=== PATIENT | male | born 1970 | race Caucasian/White ===

== ENCOUNTER 2019-08-24 17:50 | Emergency (ER) | payer BC, SELFPAY ==
[2019-08-24 17:58] VITALS: BP 120/74; PULSE 74; RESP 20; TEMP 37; O2SAT 100
--- NOTE | 2019-08-24 18:07 | ED.URI ---
HPI - URI/Sore Throat General Chief Complaint: Upper Respiratory Infection Stated Complaint: Cold/Flu History of Present Illness HPI Narrative: This a 49-year-old male comes in complaining not feeling very well has a cough nasal drainage chest congestion approximately a week ago he had a fever that he has not felt that well continues people at work have had the flu Related Data Allergies Allergy/AdvReac Type Severity Reaction Status Date / Time Penicillins Allergy Unknown hives Verified 08/24/19 18:20 Review of Systems Review of Systems: Narrative: CONSTITUTIONAL: Denies fever, chills, or sweats. EYES: Denies visual changes, redness, or discharge. ENT: Reports rhinorrhea, congestion, sore throat, or otalgia. CARDIOVASCULAR:Denies chest pain, palpitations, or edema. RESPIRATORY: Reports cough or dyspnea. GASTROINTESTINAL: Denies abdominal pain, nausea, vomiting, or diarrhea. GENITOURINARY: Denies dysuria or hematuria. SKIN:[Denies rash or itching. MUSCULOSKELETAL:Denies back pain, joint pain, or myalgia. NEUROLOGIC: Denies headache, numbness, or weakness. PSYCHIATRIC:Denies anxiety or depression PMFSH Comments At time as signature, I have reviewed and agree with nursing past medical, social, surgical and family history. Please see nursing chart for further information. There is no relevant family history pertinent to the presenting complaint. Exam Narrative: Exam Narrative: GENERAL:Well-appearing, well-nourished, and in no acute distress. Malaise and fatigue HEAD:Normocephalic, atraumatic. EYES: PERRLA and EOMI. ENT: Nares clear,moderate rhinorrhea or epistaxis. Mucous membranes moist. Pharyngeal erythema, TM bulging clear NECK: Supple. CHEST: Clear to auscultation. No respiratory distress. HEART: Regular rate and rhythm. No murmur heard. Normal peripheral pulses. ABDOMEN: Soft, nontender, nondistended, normal active bowel sounds. EXTREMITIES: Normal range of motion. No edema. SKIN: Warm, dry, no rash. NEURO: No focal deficits. Alert and oriented x3. Course Vital Signs Vital signs: Vital Signs Temperature 98.6 F 08/24/19 17:58 Pulse Rate 74 08/24/19 17:58 Respiratory Rate 20 08/24/19 17:58 Blood Pressure 120/74 08/24/19 17:58 Pulse Oximetry 100 03/09/20 17:58 Temperature 98.6 F 08/24/19 17:58 Pulse Rate 74 08/24/19 17:58 Respiratory Rate 20 08/24/19 17:58 Blood Pressure 120/74 08/24/19 17:58 Pulse Oximetry 100 08/24/19 17:58 MDM - URI/Sore Throat Lab Data Labs: Strep Screen Positive Group A Strep *(Reference Range: Negative)* Discharge Plan Discharge Clinical Impression: Strep throat Patient Disposition: Home, Self-Care Condition: Stable Instructions: Antibiotic Form, Pharyngitis (ED), Strep Throat (ED) Additional Instructions: change your tooth brush in two days, Gargle warm salt water , Tylenol and Ibuprofen Prescriptions: New cefdinir 300 mg capsule 300 mg PO Q12H 10 Days Qty: 20 RF: 0 Follow-up/Referrals: UNKNOWN,DOCTOR [Primary Care Provider] - Stand Alone Forms: Work/School Release IP Time of Disposition: 18:32 Discharge Date/Time: 08/24/19 18:43
== END 2019-08-24 18:43 | disposition home or self-care (01) ==
PROVIDERS: Emergency Provider Nurse Practitioner Family
DX: J02.0 Streptococcal pharyngitis (principal)
CPT/HCPCS: 87880; 99213; G0463